=== PATIENT | female | born 1975 | race Caucasian/White ===

== ENCOUNTER 2018-10-13 07:12 | Day surgery (SDC) | payer OTHER ==
[2018-10-07 10:34] VITALS: BMI 22.6
[2018-10-13] MEDS ORDERED: ONDANSETRON 4 MG/2 ML VIAL ONE (09:20)
[2018-10-13] MEDS ORDERED: DEXAMETHASONE SOD PHOSPHATE 4 MG/1 ML VIAL ONE (09:20)
[2018-10-13] MEDS ORDERED: PROPOFOL 20 ML ONE (09:20)
[2018-10-13] MEDS ORDERED: LIDOCAINE HCL 2% (50ML VIAL) NR ONE (09:23)
[2018-10-13] MEDS ORDERED: ACETAMINOPHEN 325 MG TABLET (FP) PO PRN (09:45)
[2018-10-13] MEDS ORDERED: oxyCODONE HCL 5 MG TABLET PO PRN (09:45)
[2018-10-13] MEDS ORDERED: LACTATED RINGERS SOLUTION 1,000 ML IV SCH (09:45)
[2018-10-13] MEDS ORDERED: ONDANSETRON 4 MG/2 ML VIAL IVPUSH PRN (09:45)
[2018-10-13 10:07] VITALS: TEMP 98.4
[2018-10-13 10:49] VITALS: BP 92/56; PULSE 58
--- NOTE | 2018-10-14 17:07 | OP ---
DATE OF OPERATION: 10/13/2018 PREOPERATIVE DIAGNOSIS: Right carpal tunnel syndrome. POSTOPERATIVE DIAGNOSIS: Right carpal tunnel syndrome. OPERATIVE PROCEDURE: Right carpal tunnel release. ANESTHESIA: Local with sedation. COMPLICATIONS: None. ESTIMATED BLOOD LOSS: Minimal. INDICATION FOR PROCEDURE: The patient is a 43-year-old female with the above findings, indicated for operative treatment. Risks, benefits, and alternatives were discussed with the patient at length. Proper informed consent was obtained. PROCEDURE: After proper identification of the patient and correct operative site, patient was brought to the operating room and placed supine on the operating table, all bony prominences well padded. Sedation was given by the anesthesiologist and local anesthesia was given 2% lidocaine. Right upper extremity was prepped and draped in the usual sterile fashion. Well-padded tourniquet was placed with a sterile prep. Esmarch bandage to exsanguinate the right upper extremity. Tourniquet inflated to 250 mmHg. Longitudinal incision was made in the proximal aspect of the palm. Incision was taken sharply through the skin with blunt and sharp dissection through subcutaneous tissues. The palmar fascia was divided longitudinally. The transcarpal ligament was divided longitudinally along with the distal 4 cm of the antebrachial fascia under direct visualization under direct visualization with loupe magnification. This provided complete release of the median nerve at the wrist. Wound was irrigated with saline and repaired with 5-0 fast absorbing plain gut suture. Sterile dressing was applied. The patient was brought to the recovery room in stable condition. She tolerated the procedure well. Juan [id number]
== END 2018-10-13 10:30 | disposition home or self-care (01) ==
LOC: FASU 07:12
PROVIDERS: ATTEND Orthopaedic Surgery Hand Surgery
PROC: 01N50ZZ Release Median Nerve, Open Approach (ICD-10-PCS; principal; 2018-10-13 09:32)
DX: G56.01 Carpal tunnel syndrome, right upper limb (principal)
CPT/HCPCS: 84703

== ENCOUNTER 2021-06-19 06:47 | Day surgery (SDC) | payer OTHER ==
[2021-06-17 15:25] VITALS: BMI 21.9
[2021-06-19] MEDS ORDERED: MIDAZOLAM HCL 2 MG/2 ML SINGLE DOSE VIAL ONE (08:23)
[2021-06-19] MEDS ORDERED: LIDOCAINE HCL 2% (20ML MULTI-DOSE VIAL) ONE (08:28)
[2021-06-19] MEDS ORDERED: ONDANSETRON 4 MG/2 ML VIAL ONE (08:41)
[2021-06-19] MEDS ORDERED: DEXAMETHASONE SOD PHOSPHATE 4 MG/1 ML VIAL ONE (08:41)
[2021-06-19] MEDS ORDERED: LIDOCAINE HCL/PF 2% SDV 5ML VIAL ONE (08:41)
[2021-06-19] MEDS ORDERED: PROPOFOL 20 ML ONE ×2 (08:42)
[2021-06-19] MEDS ORDERED: SUCCINYLCHOLINE CHLORIDE 200 MG/10 ML SYRINGE ONE (08:50)
[2021-06-19 09:35] VITALS: PULSE 86; TEMP 97.8
[2021-06-19 10:15] VITALS: BP 110/67
== END 2021-06-19 10:26 | disposition home or self-care (01) ==
LOC: FASU 06:47
PROVIDERS: ATTEND Orthopaedic Surgery Hand Surgery
PROC: 01N50ZZ Release Median Nerve, Open Approach (ICD-10-PCS; principal; 2021-06-19 08:53)
DX: G56.02 Carpal tunnel syndrome, left upper limb (principal)
CPT/HCPCS: 84703